=== PATIENT | female | born 2005 | race Two or more races ===

== ENCOUNTER 2025-05-04 12:25 | Emergency (ER) | payer MEDICAID, OTHER ==
[~2025-05-04] VITALS: Ht 152.4 cm; Wt 75.1 kg
[2025-05-04 12:35] VITALS: BP 133/78; TEMP 98.2
--- NOTE | 2025-05-04 12:56 | ED.PDOC ---
History of Present Illness HPI Comments 19F presents to the ER w/ prior MHx of asthma and the c/c of a cough. Pt reports on having a non-productive cough for the past 3 days w/ it being unbearable today and not being being able to stop coughing. Denies chills, fever, N/V/D, CP. No other associated symptoms, modifiers, recent injuries or sick contacts present at this time. Chief Complaint: Cough Time Seen by MD: 12:35 Primary Care Provider: [facility] Reviewed Notes: Nurses Notes, Medications, Allergies Allergies: Coded Allergies: NO KNOWN ALLERGIES (Unverified , 05/04/25) Information Source: Patient Mode of Arrival: Ambulatory Severity: Moderate Timing: Days Duration: Since onset, Days Prehospital treatment: None Past Medical History PAST MEDICAL HISTORY: Asthma Surgical History: Denies all surgeries AUTOMOTIVE REFINISHER History: No Pertinent AUTOMOTIVE REFINISHER History Family History Family History: Reviewed,noncontributory to illness, Unknown Social History Smoker: Non-Smoker Alcohol: Denies ETOH Use Drugs: Denies Drug Use Lives In: Home Constitutional: denies: chills, diaphoresis, fatigue, fever, malaise, sweats, weakness, others EENTM: denies: blurred vision, double vision, ear bleeding, ear discharge, ear drainage, ear pain, ear ringing, eye pain, eye redness, hearing loss, mouth pain, mouth swelling, nasal discharge, nose bleeding, nose congestion, nose pain, photophobia, tearing, throat pain, throat swelling, voice changes, others Respiratory: reports: cough; denies: hemoptysis, orthopnea, SOB at rest, shortness of breath, SOB with excertion, stridor, wheezing, others Cardiovascular: denies: chest pain, dizzy spells, diaphoresis, Dyspnea on exertion, edema, irregular heart beat, left arm pain, lightheadedness, palpitations, PND, syncope, others Gastrointestinal: denies: abdomen distended, abdominal pain, blood streaked bowels, constipated, diarrhea, dysphagia, difficulty swallowing, hematemesis, melena, nausea, poor appetite, poor fluid intake, rectal bleeding, rectal pain, vomiting, others Genitourinary: denies: abnormal vagina bleeding, burning, dyspareunia, dysuria, flank pain, frequency, hematuria, incontinence, pain, , vagina dis charge, urgency, others Neurological: denies: dizziness, fainting, headache, left sided numbness, left sided weakness, numbness, paresthesia, pre-existing deficit, right sided numbness, right sided weakness, seizure, speech problems, tingling, tremors, weakness, others Musculoskeletal: denies: back pain, gout, joint pain, joint swelling, muscle pain, muscle stiffness, neck pain, others Integumetry: denies: bruises, change in color, change in hair/nails, dryness, laceration, lesions, lumps, rash, wounds, others Allergic/Immunocompromised: denies: Difficulty Healing, Frequent Infections, Hives, Itching, others Hematologic/Lymphatic: denies: anemia, blood clots, easy bleeding, easy bruising, swollen glands, others Endocrine: denies: excessive hunger, excessive sweating, excessive thirst, excessive urination, flushing, intolerance to cold, intolerance to heat, unexplained weight gain, unexplained weight loss, others Psychiatric: denies: anxiety, bipolar disorder, depression, hopeless, panic disorder, schizophrenia, sleepless, suicidal, others All Other Systems: Reviewed and Negative Physical Exam General Appearance: No Apparent Distress, Normal HEENT: Normal ENT Inspection, Pharynx Normal, TMs Normal Neck: Full Range of Motion, Non-Tender, Normal, Normal Inspection Respiratory: Chest Non-Tender, Lungs Clear, No Accessory Muscle Use, No Respiratory Distress, Normal Breath Sounds Cardiovascular: No Edema, No JVD, No Murmur, No Gallop, Normal Peripheral Pulses, Regular Rate/Rhythm Breast Exam: Deferred Gastrointestinal: No Organomegaly, Non Tender, No Pulsatile Mass, Normal Bowel Sounds, Soft Genitalia: Deferred Pelvic: Deferred Rectal: Deferred Extremities: No calf tenderness, Normal capillary refill, Normal inspection, No rmal range of motion, Non-tender, No pedal edema Musculoskeletal : Apperance: Normal Neurologic: Alert, 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 Was a procedure done?: No Differential Dx Considerations may include: uri, asthma exacerbation, pneumonia, anxiety X-Ray, Labs, Meds, VS Vital Signs Date Time Temp Pulse Resp B/P (MAP) Pulse Ox O2 Delivery O2 Flow Rate FiO2 05/04/25 12:35 16 97 Room Air* 0 21 05/04/25 12:35 98.2 85 16 133/78 (96) 97 98.2 Time of 1ST Reevaluation: 13:05 Reevaluation 1ST: Unchanged Patient Education/Counseling: Diagnosis, Treatment, Prognosis, Need For Follow Up Family Education/Counseling: No Family Present Comments pt is not symptomatic at this time. she does not have her inhaler here. i will refill her inhalers and start her on prednisone for mild asthma exacerbation, likely due to a viral uri Departure 1 Departure Time of Disposition: 13:01 Impression: Primary Impression: URI (upper respiratory infection) Qualified Codes: J06.9 - Acute upper respiratory infection, unspecified Additional Impressions: Asthma exacerbation Qualified Codes: J45.21 - Mild intermittent asthma with (acute) exacerbation Medication refill Disposition: 01 HOME / SELF CARE / HOMELESS Condition: Good e-Prescriptions Prednisone (Prednisone) 20 Mg Tab 20 MG PO DAILY for 5 Days, #5 TAB Prov: STEPHEN AGARWAL MD 05/04/25 Ipratropium-Albuterol (COMBIVENT RESPIMAT) Respimat Aer 2 PUFF IN Q4HP PRN, #1 AER Prov: STEPHEN AGARWAL MD 05/04/25 Discharged With: Self Critical Care Note Critical Care Time?: No Stability Stability form required: No I personally scribed for STEPHEN AGARWAL MD ([email or web address]) on 05/04/25 at 12:56. Electronically submitted by Junaid Longoria ([email or web address]). STEPHEN AGARWAL MD May 04, 2025 12:56
[2025-05-04] MEDS ORDERED: IPRAAER6 IN (13:03)
[2025-05-04] MEDS ORDERED: PRED20TA2 PO (13:03)
[2025-05-04 13:21] VITALS: PULSE 84; RESP 15; O2SAT 95
== END 2025-05-04 13:31 | disposition home or self-care (01) ==
LOC: ER 12:25
DX: J06.9 Acute upper respiratory infection, unspecified (principal); J45.21 Mild intermittent asthma with (acute) exacerbation

== ENCOUNTER 2025-05-05 15:44 | Observation (INO) | payer MEDICAID, OTHER ==
[~2025-05-05 15:44] MED LIST: IPRAAER6 IN; PRED20TA2 PO
--- NOTE | 2025-05-05 17:37 | DVHDS2 ---
Physician Discharge Progress N Final Diagnosis: IUP 38 wk, false labor Pelvic pain Operations or Procedures: Operations or Procedures NST- Categ 1 reactive Condition on Discharge: Stable Disposition: Home Discharge Instructions: Diet: Regular Activity: Light activity Follow Up/Referral: PRN Medications: NA Follow Up Care: Discharge Statement: "Patient was advised to return to the ER or call 911 if any headaches, dizziness, shortness of breath, chest pain, abdominal pain, bleeding, fevers, or worsening of medical condition. Patient was counseled about treatment plan, medications, possible side effects, patientverbalized understanding. All questions were answered to the best of my ability. This discharge took greater then 30 minutes in planning, reviewing documentation, counseling the patient, and discussing with other team members." Visit Coding OBGYN Date of Service: May 05, 2025 Billing Provider: ANITHA BRUMFIELD DO [employer] Common Visit Codes: 24300-CKP/OBS SAME DATE (MOD) [employer] Procedure Codes: 45968-98- NON-STRESS TEST ANITHA BRUMFIELD DO May 05, 2025 17:37
== END 2025-05-05 16:38 | disposition home or self-care (01) ==
LOC: LDRP 15:44
PROVIDERS: ADMIT Obstetrics & Gynecology; ATTEND Obstetrics & Gynecology
DX: O48.0 Post-term pregnancy (principal); O26.893 Other specified pregnancy related conditions, third trimester; R10.2 Pelvic and perineal pain; Z3A.38 38 weeks gestation of pregnancy; Z79.899 Other long term (current) drug therapy; Z98.890 Other specified postprocedural states
CPT/HCPCS: 59025; 81002; 94760; G0378